=== PATIENT | male | born 1990 | race Caucasian/White ===

== ENCOUNTER 2018-12-29 12:40 | Emergency (ER) | payer BC ==
[~2018-12-29] VITALS: Ht 182.9 cm; Wt 90.8 kg
[2018-12-29 12:47] VITALS: Ht 182.9 cm; Wt 90.8 kg
[2018-12-29] MEDS ORDERED: SOD CHLORIDE 0.9% 1,000 ML IV STA (13:39)
[2018-12-29] MEDS ORDERED: ONDANSETRON 4 MG INJ IV STA (13:39)
[2018-12-29] MEDS ORDERED: morphine 4 MG/ML VIAL IV STA (13:39)
--- NOTE | 2018-12-29 13:45 | ERD ---
ER Documentation Chief Complaint Chief Complaint ABDOMINAL PAIN WITH N/V SINCE 0600. PANCREATITIS HPI Is a 28-year-old male presents with moderate to severe abdominal pain that began today with associated nausea and vomiting and also some diarrhea. No fever. Pain is worse after eating. No testicular pain or flank pain. No dysuria hematuria or frequency. Does have a history of pancreatitis many years ago. Denies heavy alcohol consumption. ROS All systems reviewed and are negative except as per history of present illness. Medications Home Meds Active Scripts Ondansetron (Ondansetron Odt) 4 Mg Tab.rapdis, 4 MG PO Q6H PRN for NAUSEA AND/OR VOMITING, #20 TAB Prov:BRADFORD COSBY PA-C 12/29/18 Hydrocodone/Acetaminophen ([place] 5-325 Tablet) 1 Each Tablet, 1 TAB PO Q6H PRN for PAIN, #15 TAB Prov:BRADFORD COSBY PA-C 12/29/18 Dicyclomine HCl (Dicyclomine HCl) 10 Mg Capsule, 10 MG PO TID PRN for ABDOMINAL CRAMPING, #20 CAP Prov:BRADFORD COSBY PA-C 12/29/18 Allergies Allergies: Coded Allergies: No Known Allergy (Unverified , 12/29/18) PMhx/Soc Medical and Surgical Hx: pt denies Medical Hx, pt denies Surgical Hx Hx Alcohol Use: No Hx Substance Use: No Hx Tobacco Use: No Smoking Status: Never smoker FmHx Family History: No diabetes Physical Exam Vitals Vital Signs Date Temp Pulse Resp B/P (MAP) Pulse Ox O2 O2 Flow FiO2 Time Delivery Rate 12/29/18 97.9 59 20 133/93 100 12:47 (106) Physical Exam INITIAL VITAL SIGNS: Reviewed by me GENERAL: Awake, alert and oriented x 4, well appearing, nontoxic, speaking in full sentences. No acute distress HEAD: Atraumatic NECK: Supple. No masses. Full range of motion. No meningismus. No midline tenderness. EYES: EOMI. PERRL. RESPIRATORY: Clear to auscultation bilaterally. Symmetric chest wall rise. No wheezing or rales. No accessory muscle use. CV: Regular rate and rhythm. No murmurs, rubs, or gallops. ABDOMEN: Soft, non-distended. Diffuse abdominal tenderness throughout. No CVA tenderness bilaterally. No guarding. No rebound. : Deffered. Result Diagram: 12/29/18 1411 12/29/18 1411 Results 24 hrs Laboratory Tests Test 12/29/18 13:54 12/29/18 14:11 Urine Color YELLOW Urine Clarity CLEAR Urine pH 9.0 Urine Specific [place] 1.030 Urine Ketones 2+ mg/dL Urine Nitrite NEGATIVE mg/dL Urine Bilirubin NEGATIVE mg/dL Urine Urobilinogen NEGATIVE mg/dL Urine Leukocyte Esterase NEGATIVE Jennifer/ul Urine Microscopic RBC 1 /HPF Urine Microscopic WBC 1 /HPF Urine Mucus MODERATE /HPF Urine Hemoglobin NEGATIVE mg/dL Urine Glucose NEGATIVE mg/dL Urine Total Protein 2+ mg/dl White Blood Count 16.5 10^3/ul Red Blood Count 5.62 10^6/ul Hemoglobin 16.7 g/dl Hematocrit 49.4 % Mean Corpuscular Volume 87.9 fl Mean Corpuscular Hemoglobin 29.7 pg Mean Corpuscular Hemoglobin Concent 33.8 g/dl Red Cell Distribution Width 12.4 % Platelet Count 248 10^3/UL Mean Platelet Volume 9.9 fl Immature Granulocytes % 0.700 % Neutrophils % 87.2 % Lymphocytes % 6.4 % Monocytes % 5.5 % Eosinophils % 0.0 % Basophils % 0.2 % Nucleated Red Blood Cells % 0.0 /100WBC Immature Granulocytes # 0.110 10^3/ul Neutrophils # 14.4 10^3/ul Lymphocytes # 1.1 10^3/ul Monocytes # 0.9 10^3/ul Eosinophils # 0.0 10^3/ul Basophils # 0.0 10^3/ul Nucleated Red Blood Cells # 0.0 10^3/ul Sodium Level 143 mmol/L Potassium Level 4.7 mmol/L Chloride Level 102 mmol/L Carbon Dioxide Level 25 mmol/L Anion Gap 16 Blood Urea Nitrogen 19 mg/dl Creatinine 0.93 mg/dl Est Glomerular Filtrat Rate mL/min > 60 mL/min Glucose Level 141 mg/dl Calcium Level 10.9 mg/dl Total Bilirubin 0.9 mg/dl Direct Bilirubin 0.00 mg/dl Indirect Bilirubin 0.9 mg/dl Aspartate Amino Transf (AST/SGOT) 51 IU/L Alanine Aminotransferase (ALT/SGPT) 82 IU/L Alkaline Phosphatase 65 IU/L Total Protein 8.8 g/dl Albumin 5.4 g/dl Globulin 3.40 g/dl Albumin/Globulin Ratio 1.58 Lipase 44 U/L Current Medications Medications Dose Sig/King Start Time Status Last (Trade) Ordered Route PRN Stop Time Admin Dose Reason Admin Sodium 1,000 ml @ Q1H STAT 12/29/18 DC 12/29/18 Chloride 1,000 mls/hr IV 13:39 14:12 12/29/18 14:38 Morphine 4 mg ONCE STAT 12/29/18 DC 12/29/18 Sulfate IV 13:39 14:11 (morphine) 12/29/18 13:40 Ondansetron 4 mg ONCE STAT 12/29/18 DC 12/29/18 HCl (Zofran IV 13:39 14:12 Inj) 12/29/18 13:40 1 mg ONCE STAT 12/29/18 DC 12/29/18 Hydromorphone IV 14:47 14:53 HCl 12/29/18 14:48 (Dilaudid) Procedures/MDM The differential diagnosis includes but is not limited to appendicitis, cholelithiasis, cholecystitis, pancreatitis, hepatitis, gastritis, peptic ulcer disease, bowel obstruction, diverticulitis, renal disease including stones, torsion, AAA, pyelonephritis, and others. Fluids Zofran and morphine given. Abdominal labs and CT ordered. White blood cell count is elevated at 16.5. Otherwise his labs are unremarkable and CT scan is negative. Patient counseled regarding my diagnostic impression and care plan. Prior to discharge all questions answered. Pt agrees with treatment plan and understands strict return precautions. Pt is instructed to follow up with primary care provider within 24- 48 hours. Precautionary instructions provided including instructions to return to the ER if not improving or for any worsening or changing symptoms or concerns. Departure Diagnosis: Primary Impression: Abdominal pain Condition: Stable BRADFORD COSBY PA-C Dec 29, 2018 13:45
[2018-12-29] MEDS ORDERED: HYDROmorphONE 0.5 MG/0.5 ML SYG IV STA (14:47)
[2018-12-29] MEDS ORDERED: DICY10CA40 PO (15:02)
[2018-12-29] MEDS ORDERED: HYDR-4011 PO (15:13)
[2018-12-29] MEDS ORDERED: ONDA4TAB14 PO (15:13)
[2018-12-29 15:51] VITALS: BP 109/58; PULSE 74; RESP 18
== END 2018-12-29 15:13 | disposition home or self-care (01) ==
LOC: FTE 12:40
DX: R10.9 Unspecified abdominal pain (principal); R11.2 Nausea with vomiting, unspecified
CPT/HCPCS: 36415; 74176; 80053; 81001; 83690; 85025; 96374; 96375; 99285; J1170; J2270; J2405; J7030

== ENCOUNTER 2019-01-19 13:49 | Emergency (ER) | payer BC ==
[~2019-01-19] VITALS: Ht 182.9 cm; Wt 85.6 kg
[~2019-01-19 13:49] MED LIST: DICY10CA40 PO; HYDR-4011 PO; ONDA4TAB14 PO
[2019-01-19 14:05] VITALS: BP 130/79; PULSE 82; RESP 16; Ht 182.9 cm; Wt 85.6 kg
[2019-01-19] MEDS ORDERED: KETOROLAC 30 MG INJ IM STA (15:33)
--- NOTE | 2019-01-19 15:50 | ERD ---
ER Documentation Chief Complaint Chief Complaint feels pressure on back of head , dizziness , no neuro deficits HPI 28-year-old male presents for multiple complaints. He states that he has diffuse pressure type headache that started this morning. No treatment tried at home. He also complains of weakness, anxiety, fatigue. He was seen at urgent care a few days ago, bladder was done which was mostly normal. Patient had a normal TSH level. He was found to have a low testosterone level and was seen by urology a day ago was given a testosterone shot which he states helped but his symptoms returned. It was noted that the urologist believes that the low testosterone level secondary to mother issue rather than a primary testosterone issue. Patient has a history of anxiety and depression, having more stress recently, recent dog . He does have Ativan at home which she states helps with the symptoms. ROS All systems reviewed and are negative except as per history of present illness. Medications Home Meds Active Scripts Ondansetron (Ondansetron Odt) 4 Mg Tab.rapdis, 4 MG PO Q6H PRN for NAUSEA AND/OR VOMITING, #20 TAB Prov:BRADFORD COSBY PA-C 12/29/18 Hydrocodone/Acetaminophen ([place] 5-325 Tablet) 1 Each Tablet, 1 TAB PO Q6H PRN for PAIN, #15 TAB Prov:BRADFORD COSBY PA-C 12/29/18 Dicyclomine HCl (Dicyclomine HCl) 10 Mg Capsule, 10 MG PO TID PRN for ABDOMINAL CRAMPING, #20 CAP Prov:BRADFORD COSBY PA-C 12/29/18 Allergies Allergies: Coded Allergies: No Known Allergy (Unverified , 12/29/18) PMhx/Soc Hx Alcohol Use: No Hx Substance Use: No Hx Tobacco Use: No Physical Exam Vitals Vital Signs Date Temp Pulse Resp B/P (MAP) Pulse Ox O2 O2 Flow FiO2 Time Delivery Rate 01/19/19 97.9 82 16 130/79 99 14:05 (96) Physical Exam Const: No acute distress Head: Atraumatic Eyes: Normal Conjunctiva ENT: Normal External Ears, Nose and Mouth. Neck: Full range of motion. No meningismus. Resp: Clear to auscultation bilaterally Cardio: Regular rate and rhythm, no murmurs Abd: Soft, non tender, non distended. Normal bowel sounds Skin: No petechiae or rashes Back: No midline or flank tenderness Ext: No cyanosis, or edema Neur: Awake and alert Psych: Normal Mood and Affect Results 24 hrs Current Medications Medications Dose Sig/King Start Time Status Last (Trade) Ordered Route PRN Stop Time Admin Dose Reason Admin Ketorolac 30 mg ONCE STAT 01/19/19 DC Tromethamine IM 15:33 01/19/19 (Toradol) 15:35 Procedures/MDM Medical Decision Making: Differential diagnosis includes but not limited to primary headache, anxiety, depression, electrolyte disorder Patient appeared well on physical exam. Physical examination was unremarkable. Patient did have pressured speech and appears anxious during examination. Given that he had blood work done a couple days ago for similar symptoms and it was normal including normal thyroid function testing, it was decided that repeat blood work was not necessary. Patient states that he has a follow-up with endocrinology soon. Advised the patient may have underlying anxiety, depression however medical causes need to be ruled out first. He is advised to keep his appointment with his neurologist. Otherwise if testing continues to be normal and he should focus on treatment for anxiety and depression. Discussed with patient need for psychology and psychiatric services. Prescription(s): Patient states that he has Ativan at home so he will not need a prescription. Offered to give patient some medication for headache however he refused stating that he has medication for headache at home. Patient advised to follow up with PCP in 1-2 days. Patient advised to return to ED for new or worsening symptoms. Patient stable on discharge from the ED. Disclaimer: Inadvertent spelling and grammatical errors are likely due to EHR/dictation software use and do not reflect on the overall quality of patient care. Also, please note that the electronic time recorded on this note does not necessarily reflect the actual time of the patient encounter. Departure Diagnosis: Primary Impression: Headache Headache type: unspecified Headache chronicity pattern: unspecified pattern Intractability: not intractable Qualified Codes: R51 - Headache Additional Impression: Fatigue Fatigue type: unspecified Qualified Codes: R53.83 - Other fatigue Condition: Fair Patient Instructions: Self-Care for Headaches, Understanding Generalized Anxi ety Disorder (BERNIE), Generalized Weakness Referrals: COMMUNITY CLINICS YOU HAVE RECEIVED A MEDICAL SCREENING EXAM AND THE RESULTS INDICATE THAT YOU DO NOT HAVE A CONDITION THAT REQUIRES URGENT TREATMENT IN THE EMERGENCY DEPARTMENT. FURTHER EVALUATION AND TREATMENT OF YOUR CONDITION CAN WAIT UNTIL YOU ARE SEEN IN YOUR DOCTORS OFFICE WITHIN THE NEXT 1-2 DAYS. IT IS YOUR RESPONSIBILITY TO MAKE AN APPOINTMENT FOR FOLOW-UP CARE. IF YOU HAVE A PRIMARY DOCTOR --you should call your primary doctor and schedule an appointment IF YOU DO NOT HAVE A PRIMARY DOCTOR YOU CAN CALL OUR PHYSICIAN REFERRAL HOTLINE AT IF YOU CAN NOT AFFORD TO SEE A PHYSICIAN YOU CAN CHOSE FROM THE FOLLOWING [facility] [address] [facility] [address] DocSend [facility]. [facility] [address] [facility] [address] [facility] [address] [facility]. [facility]. [address] Additional Instructions: Call your primary care doctor TOMORROW for an appointment during the next 1-2 days.See the doctor sooner or return here if your condition worsens before your appointment time. CHAD JAMIL DO Jan 19, 2019 15:50
== END 2019-01-19 16:13 | disposition home or self-care (01) ==
LOC: FTE 13:49
DX: R51 Headache (principal); R53.83 Other fatigue
CPT/HCPCS: 99282